=== PATIENT | female | born 1980 | race Caucasian/White ===

== ENCOUNTER 2017-01-10 04:49 | Inpatient (IN) | payer BC ==
[~2017-01-10 04:49] MED LIST: FLONASE ALLERG9.9 ML; ULTRAM50 M1 PO
--- NOTE | 2017-01-10 18:09 | NUR ---
1344- IN REPORT WILLIAN JOSEPH TOLD FLOOR RN THAT BASIL RATE ON FRONT DESK ADMIN WAS 0.3, 1.0 WAS ORDERED, BUT MACHINE WOULD ONLY DO 0.3. WILLIAN JOSEPH CALLED DR PRADO'S OFFICE PRIOR TO PATIENT COMING TO FLOOR. [phone] JANA JOSEPH CALLED MD OFFICE AND SPOKE TO LINNEA JOSEPH- DISCUSSED WITH LINNEA THAT THE MACHINE WOULD ONLY ALLOW 0.3. LINNEA CALLED BACK WITH ORDERS FOR BASIL OF 0.[address] PRADO
[2017-01-13] MEDS ORDERED: PERCOCET 5-3251 EACH PO (09:55)
[2017-01-13] MEDS ORDERED: SENOKOT-S TABL1 EACH PO (09:55)
[2017-01-13] MEDS ORDERED: CYCLOBENZAPRINE5 M1 PO (09:56)
== END 2017-01-13 10:34 | DRG 460 ==
LOC: SHSB 04:49 → ORE 07:29 → PACU 12:10 → 5EB 13:20
PROVIDERS: ADMIT Orthopaedic Surgery
PROC: 0ST20ZZ Resection of Lumbar Vertebral Disc, Open Approach (ICD-10-PCS; principal; 2017-01-10)
PROC: 0SG0070 Fusion of Lumbar Vertebral Joint with Autologous Tissue Substitute, Anterior Approach, Anterior Column, Open Approach (ICD-10-PCS; 2017-01-10)
DX: M51.36 Other intervertebral disc degeneration, lumbar region (principal)
CPT/HCPCS: A4306; C1713; C9399; J0690; J1170; J3010